=== PATIENT | female | born 1935 | race Caucasian/White ===

== ENCOUNTER → 2017-12-17 | Outpatient (CLI) | payer MEDICARE, OTHER ==
[~2017-12-17] MED LIST: ASPIR 8181 MG PO; ATENOLOL25 MG PO; LISINOPRIL10 MG; LISINOPRIL2.5 MG PO; NITROSTAT0.4 MG SL; PLAVIX75 MG PO; PRIMIDONE50 MG PO; SIMVASTATIN40 MG PO; XANAX0.5 MG PO
--- NOTE | 2017-12-17 14:19 | Diagnostic Imaging Report ---
PROCEDURE:X-RAY MODIFIED BARIUM SWALLOW COMPARISON:None. INDICATIONS:Dysphagia DISCUSSION:Fluoroscopic examination was performed in conjunction with speech pathology, during swallowing of a variety of thin and thick liquid consistencies. Examination showed premature spillage to the vallecula with all consistencies. Premature spillage to piriform sinus with thin liquids, and juice portion of mixed, mechanical soft. Laryngeal penetration with the level of the vocal cords with thin liquids. One episode of naya overt aspiration with thin liquids. Trace vallecula, piriform sinus, pharyngeal wall and base of tongue residue following swallows of upper consistencies. CONCLUSION:Mild to moderate pharyngeal dysphagia. One episode of aspiration of thin liquids. Please see the report from speech pathology for complete details. José Castro M.D. Dictated by: José Castro M.D. on 12/17/2017 at 14:28 Electronically approved by: José Castro M.D. on 12/17/2017 at 14:28
== END ==
LOC: DX 11:34
PROVIDERS: ATTEND Internal Medicine
DX: I69.891 Dysphagia following other cerebrovascular disease (principal); R13.12 Dysphagia, oropharyngeal phase; I67.9 Cerebrovascular disease, unspecified
CPT/HCPCS: 74230; 92611; G8996; G8997

== ENCOUNTER 2018-02-02 11:50 | Outpatient (RCR) | payer MEDICARE, OTHER | END 2018-02-05 | LOC: ST 11:50 | PROVIDERS: ATTEND Internal Medicine | DX: I69.891 Dysphagia following other cerebrovascular disease (principal); R13.13 Dysphagia, pharyngeal phase | CPT/HCPCS: 92526 ×8; 92610; G8996; G8997 ==

== ENCOUNTER 2018-02-08 12:06 | Outpatient (RCR) | payer MEDICARE, OTHER | END 2018-03-07 | LOC: ST 12:06 | PROVIDERS: ATTEND Internal Medicine | DX: I69.891 Dysphagia following other cerebrovascular disease (principal); I67.9 Cerebrovascular disease, unspecified; R13.12 Dysphagia, oropharyngeal phase ==

== ENCOUNTER → 2018-03-02 | Outpatient (CLI) | payer MEDICARE, OTHER ==
--- NOTE | 2018-03-02 13:55 | Diagnostic Imaging Report ---
PROCEDURE: Frontal and lateral views of the chest. COMPARISON: None available. INDICATIONS: COUGH FINDINGS: Lines/tubes: None. Lungs: The lungs are well inflated and clear. There is no evidence of pneumonia or pulmonary edema. Bibasilar atelectasis. Pleura: There is no pleural effusion or pneumothorax. Heart and mediastinum: The heart and the mediastinum are normal. Bones: No acute bony abnormality. Degenerative changes of the thoracic spine. IMPRESSION: No acute radiographic abnormality. Dictated by: Chris Smith M.D. on 03/02/2018 at 13:56 Electronically approved by: Chris Smith M.D. on 03/02/2018 at 13:56
== END ==
LOC: RAD 12:36
PROVIDERS: ATTEND Internal Medicine
DX: R05 Cough (principal)
CPT/HCPCS: 71046

== ENCOUNTER 2021-10-08 13:33 | Emergency (ER) | payer MEDICARE, OTHER ==
[~2021-10-08] VITALS: Ht 154.9 cm; Wt 88.5 kg
[2021-10-08 14:01] LABS: BASOPHILS % 0.2 % (0.0-1.0); EOSINOPHILS # (AUTO) 0.1 (0.0-0.4); EOSINOPHILS % 1.4 % (0.0-6.0); HEMATOCRIT 38.3 % (34.2-44.1); HEMOGLOBIN 12.2 g/dL (12.0-16.0); LYMPHOCYTES # (AUTO) 1.3 (1.0-3.2); LYMPHOCYTES % 31.2 % (18.0-39.1); MEAN CORPUSCULAR HGB CONC 31.9 g/dL (31-35); MEAN CORPUSCULAR VOLUME 97.5 fL (81-99); MONOCYTES # (AUTO) 0.3 (0.2-0.8); MONOCYTES % 7.7 % (4.4-11.3); NEUTROPHILS # (AUTO) 2.5 (2.1-6.9); NEUTROPHILS % 59.3 % (38.7-80.0); PLATELET COUNT 172 x10e3/uL (140-360); RED BLOOD COUNT 3.93 x10e6/uL (3.6-5.1); RED CELL DISTRIBUTION WIDTH 13.4 % (11.7-14.4)
[2021-10-08 14:15] LABS: INR 1.02; PROTHROMBIN TIME 14.2 seconds (11.9-14.5)
[2021-10-08 14:16] LABS: PARTIAL THROMBOPLASTIN TIME 27.5 seconds (23.8-35.5)
[2021-10-08 14:23] LABS: ALBUMIN 3.7 g/dL (3.5-5.0); ANION GAP 14.9 mmol/L (8-16); CALCIUM 9.2 mg/dL (8.4-10.2); CREATININE, SERUM 0.82 mg/dL (0.57-1.11); POTASSIUM 3.9 mmol/L (3.5-5.1)
[2021-10-08 14:30] LABS: CREATINE KINASE MB 1.1 ng/mL (0-5.0)
[2021-10-08 15:53] VITALS: BP 151/57
== END 2021-10-08 15:54 | disposition home or self-care (01) ==
LOC: ER 13:40
DX: M25.552 Pain in left hip (principal); M25.562 Pain in left knee; S70.02XA Contusion of left hip, initial encounter; S80.02XA Contusion of left knee, initial encounter; W01.0XXA Fall on same level from slipping, tripping and stumbling without subsequent striking against object, initial encounter; Y93.01 Activity, walking, marching and hiking; Y92.008 Other place in unspecified non-institutional (private) residence as the place of occurrence of the external cause; E78.5 Hyperlipidemia, unspecified; E78.00 Pure hypercholesterolemia, unspecified; Z85.118 Personal history of other malignant neoplasm of bronchus and lung; Z95.5 Presence of coronary angioplasty implant and graft; Z98.84 Bariatric surgery status
CPT/HCPCS: 36415; 70450; 71045; 72125; 80053; 82550; 82553; 83735; 83880; 84484; 85025; 85610; 85730; 93005; 99284

== ENCOUNTER 2021-11-17 18:16 | Observation (INO) | payer MEDICARE, OTHER ==
[~2021-11-17] VITALS: Ht 154.9 cm; Wt 104.3 kg
[2021-11-17 21:03] LABS: BASOPHILS % 0.3 % (0.0-1.0); EOSINOPHILS % 0.6 % (0.0-6.0); HEMATOCRIT 32.3 % (34.2-44.1); HEMOGLOBIN 10.5 g/dL (12.0-16.0); LYMPHOCYTES # (AUTO) 1.2 (1.0-3.2); LYMPHOCYTES % 18.5 % (18.0-39.1); MEAN CORPUSCULAR HEMOGLOBIN 32.5 pg (28-32); MEAN CORPUSCULAR HGB CONC 32.5 g/dL (31-35); MONOCYTES # (AUTO) 0.5 (0.2-0.8); NEUTROPHILS # (AUTO) 4.9 (2.1-6.9); NEUTROPHILS % 73.2 % (38.7-80.0); PLATELET COUNT 175 x10e3/uL (140-360); RED BLOOD COUNT 3.23 x10e6/uL (3.6-5.1); RED CELL DISTRIBUTION WIDTH 14.5 % (11.7-14.4)
[2021-11-17 21:08] LABS: BACTERIA,URINE MODERATE /HPF; CLARITY,URINE CLEAR (CLEAR); COLOR,URINE YELLOW (YELLOW); KETONES,URINE NEGATIVE (NEGATIVE); LEUKOCYTE ESTERASE ,URINE NEGATIVE (NEGATIVE); NITRITE,URINE NEGATIVE (NEGATIVE); PROTEIN,URINE DIPSTICK NEGATIVE (NEGATIVE); URINE UROBILINOGEN 0.2 mg/dL (0.2 - 1); WBC,URINE (MAN) 0-5 /HPF (0-5)
[2021-11-17 21:19] LABS: ANION GAP 14.7 mmol/L (8-16); CALCIUM 9.3 mg/dL (8.4-10.2); POTASSIUM 3.7 mmol/L (3.5-5.1)
[2021-11-17 21:32] LABS: CREATININE, SERUM 0.78 mg/dL (0.57-1.11)
[2021-11-17] MEDS ORDERED: SODIUM CHLORIDE FLUSH 10 ML SYR INJ PRN (21:45)
[2021-11-17] MEDS ORDERED: ONDANSETRON HCL INJ 2MG/ML 2ML 2 MG/ML VIAL IV PRN (21:45)
[2021-11-18] VITALS (8 sets, daily range): BP systolic 116–132; BP diastolic 52–69
[2021-11-18] MEDS ORDERED: LASIX80 MG PO (02:44)
[2021-11-18] MEDS ORDERED: SERTRALINE HCL50 MG PO (02:44)
[2021-11-18] MEDS ORDERED: NITROGLYCERIN 0.4 MG SUBL SL PRN (07:30)
[2021-11-18 07:55] LABS: BASOPHILS % 0.4 % (0.0-1.0); EOSINOPHILS # (AUTO) 0.1 (0.0-0.4); EOSINOPHILS % 1.1 % (0.0-6.0); HEMATOCRIT 34.4 % (34.2-44.1); HEMOGLOBIN 10.8 g/dL (12.0-16.0); LYMPHOCYTES # (AUTO) 1.3 (1.0-3.2); LYMPHOCYTES % 28.7 % (18.0-39.1); MEAN CORPUSCULAR HEMOGLOBIN 31.6 pg (28-32); MEAN CORPUSCULAR HGB CONC 31.4 g/dL (31-35); MEAN CORPUSCULAR VOLUME 100.6 fL (81-99); MONOCYTES # (AUTO) 0.4 (0.2-0.8); MONOCYTES % 8.7 % (4.4-11.3); NEUTROPHILS # (AUTO) 2.7 (2.1-6.9); NEUTROPHILS % 60.9 % (38.7-80.0); PLATELET COUNT 144 x10e3/uL (140-360); RED BLOOD COUNT 3.42 x10e6/uL (3.6-5.1); RED CELL DISTRIBUTION WIDTH 14.3 % (11.7-14.4)
[2021-11-18] MEDS ORDERED: CEFTRIAXONE 1 GM in SODIUM CHLORIDE 0.9% 50ML 50 ML IV SCH (08:00)
[2021-11-18 08:21] LABS: ALBUMIN 3.3 g/dL (3.5-5.0); ALBUMIN/GLOBULIN RATIO 1.2 (0.8-2.0); ANION GAP 14.7 mmol/L (8-16); CALCIUM 9.3 mg/dL (8.4-10.2); CREATININE, SERUM 0.69 mg/dL (0.57-1.11); POTASSIUM 3.7 mmol/L (3.5-5.1)
[2021-11-18] MEDS ORDERED: PRIMIDONE 50 MG TAB PO SCH ×3 (09:00→21:00)
[2021-11-18] MEDS ORDERED: SERTRALINE HCL 50 MG TAB PO SCH (09:00)
[2021-11-18] MEDS ORDERED: LISINOPRIL 2.5 MG TAB PO SCH (09:00)
[2021-11-18] MEDS ORDERED: ASPIRIN 81 MG CHEW TAB PO SCH (09:00)
[2021-11-18] MEDS ORDERED: FUROSEMIDE 40 MG TAB PO SCH (09:00)
[2021-11-18] MEDS ORDERED: SODIUM CHLORIDE 0.9% 250ML 250 ML ONE (09:09)
[2021-11-18] MEDS ORDERED: SIMVASTATIN 20 MG TAB PO SCH (21:00)
== END 2021-11-18 18:59 ==
LOC: ER 18:28 → ERHOLD 21:32 → MED/SURG 22:24
PROVIDERS: ADMIT Internal Medicine; ATTEND Internal Medicine
DX: N39.0 Urinary tract infection, site not specified (principal); Z91.81 History of falling; I11.0 Hypertensive heart disease with heart failure; I50.32 Chronic diastolic (congestive) heart failure; Z20.822 Contact with and (suspected) exposure to COVID-19; I25.10 Atherosclerotic heart disease of native coronary artery without angina pectoris; E66.01 Morbid (severe) obesity due to excess calories; Z68.41 Body mass index [BMI] 40.0-44.9, adult; D63.8 Anemia in other chronic diseases classified elsewhere; G25.0 Essential tremor
CPT/HCPCS: 36415 ×2; 70450; 71045; 72125; 72170; 80048; 80053; 81001; 83880; 85025 ×2; 94799; 97139; 97162; 97530; 99284; G0378 ×2; J0696; J7050; U0002

== ENCOUNTER 2021-12-28 14:13 | Emergency (ER) | payer MEDICARE, OTHER ==
[~2021-12-28] VITALS: Ht 160 cm; Wt 111.1 kg
[~2021-12-28 14:13] MED LIST changes: +LASIX80 MG PO; +SERTRALINE HCL50 MG PO
[2021-12-28] MEDS ORDERED: SODIUM CHLORIDE 0.9% 500ML 500 ML IV ONE (15:00)
[2021-12-28 15:11] LABS: BASOPHILS % 0.2 % (0.0-1.0); EOSINOPHILS % 0.7 % (0.0-6.0); LYMPHOCYTES # (AUTO) 1.2 (1.0-3.2); LYMPHOCYTES % 26.8 % (18.0-39.1); MEAN CORPUSCULAR HEMOGLOBIN 30.6 pg (28-32); MEAN CORPUSCULAR HGB CONC 31.4 g/dL (31-35); MEAN CORPUSCULAR VOLUME 97.2 fL (81-99); MONOCYTES # (AUTO) 0.3 (0.2-0.8); MONOCYTES % 7.3 % (4.4-11.3); NEUTROPHILS # (AUTO) 2.8 (2.1-6.9); NEUTROPHILS % 64.8 % (38.7-80.0); PLATELET COUNT 163 x10e3/uL (140-360)
[2021-12-28 15:12] LABS: CLARITY,URINE SL CLOUDY (CLEAR); COLOR,URINE YELLOW (YELLOW); KETONES,URINE NEGATIVE (NEGATIVE); LEUKOCYTE ESTERASE ,URINE NEGATIVE (NEGATIVE); NITRITE,URINE NEGATIVE (NEGATIVE); PROTEIN,URINE DIPSTICK NEGATIVE (NEGATIVE); URINE UROBILINOGEN 0.2 mg/dL (0.2 - 1)
[2021-12-28 15:20] LABS: INR 0.98; PROTHROMBIN TIME 13.7 seconds (11.9-14.5)
[2021-12-28 15:21] LABS: PARTIAL THROMBOPLASTIN TIME 28.8 seconds (23.8-35.5)
[2021-12-28 15:31] LABS: ALBUMIN 3.3 g/dL (3.5-5.0); ALBUMIN/GLOBULIN RATIO 0.9 (0.8-2.0); ANION GAP 15.5 mmol/L (8-16); CALCIUM 8.8 mg/dL (8.4-10.2); CREATININE, SERUM 0.85 mg/dL (0.57-1.11); MAGNESIUM 2.1 MG/DL (1.3-2.1); POTASSIUM 4.5 mmol/L (3.5-5.1)
[2021-12-28 15:50] LABS: BACTERIA,URINE FEW /HPF; CREATINE KINASE MB 1.7 ng/mL (0-5.0); EPITHELIAL CELLS,URINE MANY /LPF; RBC,URINE 0-5 /HPF (0-5); THYROID STIMULATING HORMONE 1.892 uIU/mL (0.350-4.940); WBC,URINE (MAN) 0-5 /HPF (0-5)
== END 2021-12-28 17:44 | disposition home or self-care (01) ==
LOC: ER 14:18
DX: J10.1 Influenza due to other identified influenza virus with other respiratory manifestations (principal); R05.9 Cough, unspecified; R53.1 Weakness; E78.5 Hyperlipidemia, unspecified; E78.00 Pure hypercholesterolemia, unspecified; Z20.822 Contact with and (suspected) exposure to COVID-19; Z85.118 Personal history of other malignant neoplasm of bronchus and lung; Z86.73 Personal history of transient ischemic attack (TIA), and cerebral infarction without residual deficits
CPT/HCPCS: 36415; 71045; 80053; 81001; 82550; 82553; 83735; 83880; 84443; 84484; 85025; 85610; 85730; 87086; 93005; 99284; J7040; U0002

== ENCOUNTER 2022-01-02 17:37 | Emergency (ER) | payer MEDICARE, OTHER ==
[~2022-01-02] VITALS: Ht 160 cm; Wt 111.1 kg
[2022-01-02 18:18] LABS: BASOPHILS % 0.3 % (0.0-1.0); EOSINOPHILS # (AUTO) 0.1 (0.0-0.4); EOSINOPHILS % 1.1 % (0.0-6.0); HEMATOCRIT 35.1 % (34.2-44.1); HEMOGLOBIN 11.6 g/dL (12.0-16.0); LYMPHOCYTES # (AUTO) 1.6 (1.0-3.2); LYMPHOCYTES % 26.7 % (18.0-39.1); MEAN CORPUSCULAR HEMOGLOBIN 31.7 pg (28-32); MEAN CORPUSCULAR VOLUME 95.9 fL (81-99); MONOCYTES # (AUTO) 0.4 (0.2-0.8); MONOCYTES % 6.2 % (4.4-11.3); NEUTROPHILS % 65.4 % (38.7-80.0); PLATELET COUNT 211 x10e3/uL (140-360); RED BLOOD COUNT 3.66 x10e6/uL (3.6-5.1); RED CELL DISTRIBUTION WIDTH 13.8 % (11.7-14.4)
[2022-01-02 18:39] LABS: ALBUMIN 3.6 g/dL (3.5-5.0); ANION GAP 17.7 mmol/L (8-16); CALCIUM 9.2 mg/dL (8.4-10.2); CREATININE, SERUM 0.83 mg/dL (0.57-1.11); POTASSIUM 4.7 mmol/L (3.5-5.1)
[2022-01-02 18:45] LABS: CREATINE KINASE MB 0.9 ng/mL (0-5.0)
== END 2022-01-02 20:12 | disposition home or self-care (01) ==
LOC: ER 18:00
DX: R05.9 Cough, unspecified (principal); J10.1 Influenza due to other identified influenza virus with other respiratory manifestations; I10 Essential (primary) hypertension; I50.9 Heart failure, unspecified; E78.5 Hyperlipidemia, unspecified; E78.00 Pure hypercholesterolemia, unspecified; R94.31 Abnormal electrocardiogram [ECG] [EKG]; Z20.822 Contact with and (suspected) exposure to COVID-19; Z98.84 Bariatric surgery status; Z85.118 Personal history of other malignant neoplasm of bronchus and lung
CPT/HCPCS: 36415; 71045; 80053; 82550; 82553; 83880; 84484; 85025; 99284; U0002; 93005

== ENCOUNTER 2022-09-25 02:07 | Emergency (ER) | payer MEDICARE, OTHER ==
[~2022-09-25] VITALS: Ht 160 cm; Wt 111.1 kg
== END 2022-09-25 03:35 | disposition home or self-care (01) ==
LOC: ER 02:10
DX: S52.591A Other fractures of lower end of right radius, initial encounter for closed fracture (principal); W07.XXXA Fall from chair, initial encounter; Y92.89 Other specified places as the place of occurrence of the external cause; I10 Essential (primary) hypertension; E78.5 Hyperlipidemia, unspecified; I50.9 Heart failure, unspecified; I25.10 Atherosclerotic heart disease of native coronary artery without angina pectoris; R94.31 Abnormal electrocardiogram [ECG] [EKG]; Z85.118 Personal history of other malignant neoplasm of bronchus and lung; Z86.73 Personal history of transient ischemic attack (TIA), and cerebral infarction without residual deficits
CPT/HCPCS: 93005; 99283

== ENCOUNTER 2024-05-14 09:07 | Observation (INO) | payer MEDICARE, OTHER ==
[2024-05-14] VITALS (10 sets, daily range): BP systolic 106–120; BP diastolic 45–71; PULSE 49–70; RESP 16–20; TEMP 97.3–98.2; O2SAT 95–100
[~2024-05-14] VITALS: Ht 160 cm; Wt 104.3 kg
[~2024-05-14 09:07] MED LIST changes: +FUROSEMIDE40 MG PO
[2024-05-14] MEDS ORDERED: ONDANSETRON HCL INJ 2MG/ML 2ML 2 MG/ML VIAL IV PRN (11:00)
[2024-05-14] MEDS ORDERED: Morphine 4mg INJECTION 4 MG/ML INJ IV PRN (11:00)
[2024-05-14] MEDS ORDERED: ALBUTEROL SULF 0.083% NEB SOLN 3 ML NEB NEB PRN (13:15)
[2024-05-14] MEDS ORDERED: ACETAMINOPHEN 325 MG TAB PO PRN (13:15)
[2024-05-14] MEDS ORDERED: POLYETHYLENE GLYCOL 3350 17 GM PACK PO PRN (13:15)
[2024-05-14] MEDS ORDERED: MELATONIN 3 MG TAB PO PRN (13:15)
[2024-05-14] MEDS ORDERED: MAGNESIUM/ALUMINUM/SIMETHICONE 30 ML UDC PO PRN (13:15)
[2024-05-14] MEDS ORDERED: GUAIFENESIN/DEXTROMETHORPHAN LIQD 5 ML UDC PO PRN (13:15)
[2024-05-14] MEDS ORDERED: HYDRALAZINE HCL 20 MG/ML VIAL IV PRN (13:15)
[2024-05-14] MEDS ORDERED: ELIQUIS2.5 MG PO (13:39)
[2024-05-14] MEDS ORDERED: REFRESH PLUS1 EACH OU (13:39)
[2024-05-14] MEDS ORDERED: FUROSEMIDE40 MG PO (13:39)
[2024-05-14] MEDS ORDERED: ESTRADIOL1 MG PO (13:39)
[2024-05-14] MEDS ORDERED: ACETAMINOPHEN 650 MG PO (13:39)
[2024-05-14] MEDS ORDERED: FEROSUL325 MG PO (13:39)
[2024-05-14] MEDS ORDERED: MECLIZINE HCL12.5 MG PO (13:39)
[2024-05-14] MEDS ORDERED: PRESERVISION L1 EAC1 PO (13:39)
[2024-05-14] MEDS ORDERED: ULTRAM 50MG50 MG PO (13:39)
[2024-05-14] MEDS ORDERED: NEURONTIN100 MG PO (13:39)
[2024-05-14] MEDS ORDERED: PROPRANOLOL HC120 MG PO (13:39)
[2024-05-14] MEDS ORDERED: DOCUSATE SODIU100 MG PO (13:39)
[2024-05-14] MEDS ORDERED: ZOLOFT100 MG PO (13:39)
[2024-05-14] MEDS ORDERED: ALDACTONE25 MG PO (13:43)
[2024-05-14] MEDS: SPIRONOLACTONE 25 MG TAB PO SCH (16:59)
[2024-05-14] MEDS: APIXABAN 2.5 MG TABLET PO SCH (17:01)
[2024-05-14] MEDS: GABAPENTIN 100 MG CAP PO SCH (17:01)
[2024-05-14] MEDS: PROPRANOLOL HCL 40 MG TAB PO SCH (17:01)
[2024-05-14] MEDS: TRAMADOL HCL 50 MG TAB PO PRN (17:07)
[2024-05-14] MEDS: Morphine 2mg Syringe 2 MG/ML SYR IV PRN (18:39)
[2024-05-14] MEDS: SERTRALINE HCL 100 MG TAB PO SCH (20:26)
[2024-05-15] VITALS (10 sets, daily range): BP systolic 103–135; BP diastolic 54–76; PULSE 50–67; RESP 12–20; TEMP 98.4–99.1; O2SAT 92–98
[2024-05-15] MEDS: FUROSEMIDE 40 MG TAB PO SCH (09:00)
[2024-05-15] MEDS: FERROUS SULFATE 325 MG TAB PO SCH (09:00)
[2024-05-15] MEDS: ESTRADIOL 1 MG TAB PO SCH (09:00)
[2024-05-15] MEDS: MULTIVITAMINS/MINERALS TAB PO SCH (09:00)
[2024-05-15] MEDS: DOCUSATE SODIUM 100 MG CAP PO SCH (09:00)
[2024-05-16 06:19] VITALS: PULSE 56; RESP 22; O2SAT 97
[2024-05-16 07:30] VITALS: BP 128/56; PULSE 57; RESP 18; TEMP 98.6; O2SAT 95
[2024-05-16 11:23] VITALS: BP 115/56; PULSE 63; RESP 18; TEMP 99; O2SAT 97
== END 2024-05-16 13:33 ==
LOC: ER 09:10 → ERHOLD 11:03 → MED/SURG3 12:38
PROVIDERS: ADMIT Internal Medicine Cardiovascular Disease; ATTEND Internal Medicine Cardiovascular Disease
DX: S92.332B Displaced fracture of third metatarsal bone, left foot, initial encounter for open fracture (principal); S92.342A Displaced fracture of fourth metatarsal bone, left foot, initial encounter for closed fracture; S92.352A Displaced fracture of fifth metatarsal bone, left foot, initial encounter for closed fracture; M81.0 Age-related osteoporosis without current pathological fracture; M19.072 Primary osteoarthritis, left ankle and foot; M85.872 Other specified disorders of bone density and structure, left ankle and foot; R26.9 Unspecified abnormalities of gait and mobility; R53.1 Weakness; G25.0 Essential tremor; I11.0 Hypertensive heart disease with heart failure; I50.9 Heart failure, unspecified; I48.91 Unspecified atrial fibrillation; I48.92 Unspecified atrial flutter; Z79.01 Long term (current) use of anticoagulants; I25.10 Atherosclerotic heart disease of native coronary artery without angina pectoris; E78.5 Hyperlipidemia, unspecified; I44.39 Other atrioventricular block; R00.1 Bradycardia, unspecified; W18.39XA Other fall on same level, initial encounter; Y92.009 Unspecified place in unspecified non-institutional (private) residence as the place of occurrence of the external cause; Z11.52 Encounter for screening for COVID-19; Z79.899 Other long term (current) drug therapy; Z86.73 Personal history of transient ischemic attack (TIA), and cerebral infarction without residual deficits; Z85.118 Personal history of other malignant neoplasm of bronchus and lung; Z90.2 Acquired absence of lung [part of]
CPT/HCPCS: 29515; 70450; 73630; 93005; 94799 ×3; 97162; 97530; 99284; G0378 ×3; J2270; U0002